=== PATIENT | female | born 1960 | race Caucasian/White ===

== ENCOUNTER 2016-08-28 09:35 | Day surgery (SDC) | payer OTHER ==
[~2016-08-28] VITALS: Ht 170.2 cm; Wt 87.0 kg
[~2016-08-28 09:35] MED LIST: ALBU8.5H2 INHALATION; AMOX875T2 PO; ATEN50TA PO; FLUT15.88 NS; GABA-502 PO; LORA1TAB PO; MOME13HF2 IH; VENL-57 PO; VENL150T3 PO
[2016-08-28] MEDS ORDERED: Iohexol 240 mg/mL 10 mL Inj ONE (09:36)
[2016-08-28] MEDS ORDERED: MethylprednisoLONE Depot 80 mg/mL Inj ONE (09:36)
[2016-08-28] MEDS ORDERED: DEXT15CA5 PO (10:19)
[2016-08-28] MEDS ORDERED: MORP15TA PO (10:19)
[2016-08-28 10:22] VITALS: BP 153/82; PULSE 68; RESP 16; O2SAT 95
[2016-08-28 10:41] VITALS: BP 176/88; PULSE 65; RESP 16; O2SAT 95
--- NOTE | 2016-08-28 15:30 | PCM.PROC ---
Procedure Note Date of Service: Aug 28, 2016 Pre Procedure Diagnosis: PROCEDURE: Lumbar Interlaminar epidural steroid injection. RIGHT paramedian L5- S1 ASA / ANTI-COAGULATION . No asa x 7 days. PRE-PROCEDURE DIAGNOSIS: Lumbar radiculopathy POST-PROCEDURE DIAGNOSIS: same INDICATION: 56-year-old patient with RIGHT leg pain consistent with lumbar radiculopathy PERFORMED BY: Biju Miles MD DESCRIPTION OF PROCEDURE: Patient was met in the holding area. Consent was signed, site was confirmed and all questions were answered. Patient was taken to the procedure suite and placed prone on the procedure table. Area was prepped and draped in sterile fashion. Local anesthesia with 1% lidocaine was injected. An 18-gauge Touhy needle was advanced toward the interlaminar space using fluoroscopic guidance after optimizing the AP view. A loss of resistance syringe was attached as we approached the epidural space in the lateral view. After [id number] was obtained, radioopaque contrast was injected under live fluro which confirmed epidural placement without intravascular uptake. Then , 80 mg depomedrol was injected without difficulty. ANESTHESIA: Local. EBL: None. No Blood Products Used COMPLICATIONS: None SPECIMENS: None POST-PROCEDURE DISPOSITION: Patient was returned to the holding area in stable condition. They were discharged home when all discharge criteria were met. Evaluation/Physical Exam before discharge revealed: DISCHARGE MEDICATIONS: FOLLOW UP: Return to clinic in 4 weeks. Biju Miles MD * Pain Management * Anesthesiology Biju Miles MD Aug 28, 2016 15:29
[2016-11-19] MEDS ORDERED: MS15TCR PO (15:40)
[2016-11-19] MEDS ORDERED: OMEP40CA36 PO (15:40)
[2016-11-19] MEDS ORDERED: DIAZ5TAB3 PO (15:40)
== END 2016-08-28 23:59 | disposition home or self-care (01) ==
LOC: END 09:35
PROVIDERS: ATTEND Anesthesiology Pain Medicine
DX: M54.16 Radiculopathy, lumbar region (principal); M54.5 Low back pain; F32.9 Major depressive disorder, single episode, unspecified; F90.9 Attention-deficit hyperactivity disorder, unspecified type
CPT/HCPCS: 62323; J1040

== ENCOUNTER 2016-11-20 13:39 | Day surgery (SDC) | payer OTHER ==
[~2016-11-20] VITALS: Ht 170.2 cm; Wt 91.0 kg
[~2016-11-20 13:39] MED LIST changes: -AMOX875T2 PO; +DEXT15CA5 PO; +DIAZ5TAB3 PO; +MS15TCR PO; +OMEP40CA36 PO
[2016-11-20] MEDS ORDERED: Iohexol 240 mg/mL 10 mL Inj ONE (13:40)
[2016-11-20] MEDS ORDERED: Dexamethasone 10 mg/mL Inj ONE (13:40)
[2016-11-20] MEDS ORDERED: Lidocaine PF 2% 10 mL Inj ONE (13:40)
[2016-11-20 13:55] VITALS: BP 140/76; PULSE 81; RESP 20; O2SAT 97
[2016-11-20] MEDS ORDERED: ARIP2TAB10 PO (14:04)
--- NOTE | 2016-11-20 15:09 | PCM.PROC ---
Procedure Note Date of Service: November 20, 2016 Pre Procedure Diagnosis: PROCEDURE: LEFT L5 transforaminal epidural steroid injection PRE-PROCEDURE DIAGNOSIS: Lumbar radiculopathy POST-PROCEDURE DIAGNOSIS: same INDICATION: 56-year-old patient with LEFT leg pain consistent with lumbar radiculopathy PERFORMED BY: Biju Miles MD DESCRIPTION OF PROCEDURE: Patient was met in the holding area. Consent was signed, site was confirmed and all questions were answered. was taken to the procedure suite and placed prone on the procedure table. The image intensifier was manipulated to minimize double shadows of the vertebral endplates above the neural foramen to be addressed. The image intensifier was rotated 30 ipsilaterally for Ronni dog appearance. A 25- gauge 5-inch Quincke needle was advanced towards the target area using tunnel view. The image intensifier was then changed to the lateral view and the needle was advanced towards the "safe triangle". Proper positioning was confirmed in the AP view so the tip of the needle ended at the most inferolateral aspect of the superior pedicle. Proper positioning was confirmed with injection of radiopaque contrast dye which showed delineation of the nerve root as well as epidural spread. The contrast was then injected under live fluoroscopy to rule out inadvertent vascular uptake. 1 cc of 2% Lidocaine was injected slowly. After 1 minute the patient was found to be able to move the legs appropriately with no signs or symptoms of vascular uptake of the lidocaine 10 mg dexamethasone was injected followed by another 1/2 cc of 2% Lidocaine . ANESTHESIA: Local EBL: None. No Blood Products Used COMPLICATIONS: None SPECIMENS: None POST-PROCEDURE DISPOSITION: Patient was returned to the holding area in stable condition. They were discharged home when all discharge criteria were met. Evaluation/Physical Exam before discharge revealed: DISCHARGE MEDICATIONS: (none, unless otherwise noted) FOLLOW UP: Scheduled follow-up Biju Miles MD * Pain Management * Anesthesiology .ED: Y: Patient given care and follow up instructions Biju Miles MD November 20, 2016 15:08
== END 2016-11-20 23:59 | disposition home or self-care (01) ==
LOC: END 13:39
PROVIDERS: ATTEND Anesthesiology Pain Medicine
DX: M54.16 Radiculopathy, lumbar region (principal)
CPT/HCPCS: 64483; J1100